=== PATIENT | male | born 1950 | race Caucasian/White ===

== ENCOUNTER 2023-06-25 12:30 | Day surgery (SDC) | payer MEDICARE, OTHER, SELFPAY ==
[2023-06-25] VITALS (8 sets, daily range): BP systolic 149–181; BP diastolic 74–87; BMI 25.5
[2023-06-25] MEDS: LOW STRENGTH ASPIRIN 324 MG PO (15:00)
[2023-06-25] MEDS: NSS 1000 IV (15:34)
--- NOTE | 2023-06-25 16:20 | ITS.CL.CATH ---
[employer] - Catheterization
Cardiac Catheterization
Procedure Report:
CARDIAC CATHETERIZATION REPORT
Date of Procedure: 06/25/2023
Referring: Rocky Griffiths MD
Indication: Exertional dyspnea
HEMODYNAMIC DATA
AO: 138/69
LV: 138/12
LEFT VENTRICULOGRAPHY: Normal left ventricular wall motion with EF 68%
CORONARY ANGIOGRAPHY
Dominance: Left
Left Main: Normal
LAD: Tandem 20% mid LAD stenoses. There is a smooth 20-30% distal LAD stenosis
Circumflex: Dominant vessel with trivial luminal irregularities. The circumflex terminates with a small left PDA
RCA: Nondominant vessel with 40% proximal to mid stenosis
Closure Device: None-the procedure was performed via the right radial artery. The Horace's test was normal prior to the procedure.
Radiation (mGy): 207
DAP (cm2.Gy): 21.5
Fluoroscopy time: 3.5 minutes
CONCLUSIONS
1: Normal left ventricular function with EF 68%
2: Mild noncritical CAD as described
3. Recommend either aspirin or Plavix plus high intensity statin to achieve LDL less than 70
Copy to: Rocky Griffiths MD, Mary Beth Cain MD
Silvano Fritz MD, [facility], [facility]
== END 2023-06-25 19:36 | disposition home or self-care (01) ==
LOC: CATH 12:30
PROVIDERS: ATTENDING PHYSICIAN Internal Medicine Cardiovascular Disease; FAMILY PHYSICIAN Internal Medicine; OTHER PHYSICIAN Internal Medicine Cardiovascular Disease
DX: I25.10 Atherosclerotic heart disease of native coronary artery without angina pectoris (principal); R07.9 Chest pain, unspecified; R06.09 Other forms of dyspnea; I10 Essential (primary) hypertension; Z87.891 Personal history of nicotine dependence; Z82.49 Family history of ischemic heart disease and other diseases of the circulatory system; Z79.02 Long term (current) use of antithrombotics/antiplatelets
CPT/HCPCS: 93458; C1894; Q9967